=== PATIENT | female | born 1955 | race African-American/Black ===

== ENCOUNTER 2018-10-21 09:34 | Inpatient (IN) | payer BC, MEDICAID ==
[~2018-10-21] VITALS: Ht 165.1 cm; Wt 81.7 kg
[~2018-10-21 09:34] MED LIST: FLUT1DIS3 IH
[2018-10-21] MEDS ORDERED: NITROGLYCERIN 0.4MG TABLET SL SL PRN (10:00)
[2018-10-21] MEDS ORDERED: ASPIRIN 81MG TABLET PO ONE (10:00)
[2018-10-21] MEDS ORDERED: LORAZEPAM 2MG/ML CPJ IV ONE (10:00)
[2018-10-21 10:01] LABS: HEMATOCRIT. 39.5 % (36.0-48.0); MEAN CORPUSCULAR HEMOGLOBIN 29.5 pg (28.0-32.0); MEAN CORPUSCULAR VOLUME 90.1 fL (81.0-99.0); MEAN PLATELET VOLUME 6.6 fl (7.4-10.4); PLATELET 453 x1000/uL (130-400); RED BLOOD CELL COUNT 4.39 mill/uL (4.2-5.4); RED CELL DISTRIBUTION WIDTH 14.6 % (11.6-14.6)
[2018-10-21 10:08] LABS: CHLORIDE 108 mEq/L (98-107)
[2018-10-21 10:31] LABS: PLATELET ESTIMATE INCREASED
[2018-10-21] MEDS ORDERED: IPRATROPIUM BROMIDE (0.02%) 0.5MG/2.5ML NEB HHN STA (10:47)
[2018-10-21] MEDS ORDERED: METHYLPREDNISOLONE SOD SUCC 125 MG/2 ML VIAL IV STA (10:47)
[2018-10-21] MEDS ORDERED: ALBUTEROL (0.083%) 2.5MG/3ML NEB HHN STA (10:47)
[2018-10-21] MEDS ORDERED: LORAZEPAM 2MG/ML CPJ IV PRN (11:00)
[2018-10-21] MEDS ORDERED: NA PHOS,M-B/NA PHOS,DI-BA ENEMA 118ML PR PRN (11:00)
[2018-10-21] MEDS ORDERED: ACETAMINOPHEN 325MG TABLET PO PRN (11:00)
[2018-10-21] MEDS ORDERED: DIPHENHYDRAMINE 50MG/ML VIAL IV PRN (11:00)
[2018-10-21] MEDS ORDERED: GUAIFENESIN 200MG/10ML SUGAR FREE UDC PO PRN (11:00)
[2018-10-21] MEDS ORDERED: DOCUSATE SODIUM 100MG CAPSULE PO PRN (11:00)
[2018-10-21] MEDS ORDERED: IPRATROPIUM/ALBUTEROL 0.5-3(2.5)MG/3ML NEB INH PRN (11:00)
[2018-10-21] MEDS ORDERED: HYDROMORPHONE HCL/PF 2MG/ML CPJ IV PRN (11:00)
[2018-10-21] MEDS ORDERED: MAGNESIUM/ALUMINUM HYDROXIDE/SIMETHICONE 30ML UDC PO PRN (11:00)
[2018-10-21] MEDS ORDERED: ONDANSETRON HCL 4MG/2ML INJ IV PRN (11:00)
[2018-10-21] MEDS ORDERED: HYDROCODONE/ACETAMINOPHEN 5/325MG TABLET PO PRN (11:00)
[2018-10-21 12:00] VITALS: BP 189/101
[2018-10-21] MEDS ORDERED: [UNRECOGNIZED DRUG - CODE] IM (12:18)
[2018-10-21] MEDS ORDERED: PARO40TA MT (12:18)
[2018-10-21] MEDS ORDERED: ALBU90AE INH (12:18)
[2018-10-21] MEDS ORDERED: ASPI-1158 MT (12:18)
[2018-10-21] MEDS ORDERED: BUDE6HFA INH (12:18)
[2018-10-21] MEDS ORDERED: ATOR10TA MT (12:18)
[2018-10-21] MEDS ORDERED: ENOXAPARIN 40MG/0.4ML SYR SUBCUT SCH (13:00)
[2018-10-21] MEDS ORDERED: LEVOFLOXACIN 500MG PREMIX 100 ML IV SCH (14:00)
[2018-10-21] MEDS: METHYLPREDNISOLONE SOD SUCC 125 MG/2 ML VIAL IV SCH (16:50)
[2018-10-21] MEDS: CLONIDINE 0.1MG TABLET PO PRN (16:50)
[2018-10-21 20:00] VITALS: BP 177/100
[2018-10-22] MEDS: CLONIDINE 0.1MG TABLET PO PRN (00:17)
[2018-10-22] MEDS: METHYLPREDNISOLONE SOD SUCC 125 MG/2 ML VIAL IV SCH ×2 (00:17→06:22)
[2018-10-22 00:28] VITALS: BP 186/89
[2018-10-22 04:00] VITALS: BP 137/75
[2018-10-22 06:00] VITALS: BP 149/78
[2018-10-22 07:02] LABS: BASOPHILS % 0.2 % (0.0-2.0); HEMATOCRIT. 38.4 % (36.0-48.0); HEMOGLOBIN. 12.4 g/dL (12.0-16.0); MEAN CORPUSCULAR VOLUME 89.7 fL (81.0-99.0); MEAN PLATELET VOLUME 6.5 fl (7.4-10.4); MONOCYTES % 1.5 % (2.0-8.0); NEUTROPHILS % 81.3 % (40.0-76.0); PLATELET 437 x1000/uL (130-400); RED BLOOD CELL COUNT 4.28 mill/uL (4.2-5.4); RED CELL DISTRIBUTION WIDTH 14.3 % (11.6-14.6)
[2018-10-22 07:25] LABS: CHLORIDE 106 mEq/L (98-107)
[2018-10-22 07:56] LABS: LDL CHOLESTEROL 105 mg/dL (5-100)
[2018-10-22 07:57] LABS: HDL CHOLESTEROL 88 mg/dL (40-59)
[2018-10-22 08:00] VITALS: BP 151/85
[2018-10-22 10:34] VITALS: BP 151/85
== END 2018-10-22 12:10 | disposition home or self-care (01) | DRG 189 ==
LOC: ER 09:34 → ENRESERV 10:17 → CANRESERV 10:17 → 6EST 10:52 → EDBEDREQ 10:54 → ENRESERV 11:25 → 7WST 12:23
PROVIDERS: ADMIT Internal Medicine; ATTEND Internal Medicine
DX: J96.00 Acute respiratory failure, unspecified whether with hypoxia or hypercapnia (principal); J44.1 Chronic obstructive pulmonary disease with (acute) exacerbation; R00.0 Tachycardia, unspecified; I10 Essential (primary) hypertension; Z79.51 Long term (current) use of inhaled steroids; Z79.899 Other long term (current) drug therapy
CPT/HCPCS: 36415; 71045; 80061; 83880; 84484; 93005; 99285; J1650; J1956; J2060; J2930; J7050